=== PATIENT | female | born 1985 | race Caucasian/White ===

== ENCOUNTER 2017-01-28 12:48 | Emergency (ER) | payer MEDICAID ==
[2017-01-28 12:48] VITALS: BMI 39.1
--- NOTE | 2017-01-28 20:14 | RAD ---
PROCEDURE: Right Foot Radiographs. HISTORY: Pain COMPARISON: None. FINDINGS: BONES: Bone alignment and mineralization are normal. No fracture. JOINTS: Normal. SOFT TISSUES: Normal. OTHER FINDINGS: None. IMPRESSION: No acute fracture or dislocation.
--- NOTE | 2017-01-28 20:14 | RAD ---
PROCEDURE: Right Ankle Radiographs. HISTORY: Pain COMPARISON: None FINDINGS: BONES: Bone alignment and mineralization are normal. No acute fracture. JOINTS: Normal. No osteoarthritis. Ankle mortise maintained. Talar dome intact SOFT TISSUES: Normal. OTHER FINDINGS: None. IMPRESSION: No acute fracture or dislocation.
== END 2017-01-28 15:10 | disposition home or self-care (01) ==
LOC: C.ER 12:48
DX: S93.401A Sprain of unspecified ligament of right ankle, initial encounter (principal); S80.02XA Contusion of left knee, initial encounter; W10.9XXA Fall (on) (from) unspecified stairs and steps, initial encounter; Y92.9 Unspecified place or not applicable

== ENCOUNTER 2018-05-19 10:57 | Emergency (ER) | payer MEDICAID ==
[2018-05-19 10:57] VITALS: BMI 39.1
[2018-05-19 12:03] LABS: BASO # 0.3 K/uL (0.0-0.2); BASO % 5.6 % (0.0-2.0); EOS # 0.2 K/uL (0.0-0.7); EOS % 3.9 % (0.0-4.0); HEMOGLOBIN 12.8 g/dL (11.0-16.0); LYMPH # 1.1 K/uL (1.0-4.3); LYMPH % 25.1 % (20.0-40.0); MEAN CELL VOLUME 82.9 fL (81.0-99.0); MEAN CORPUSCULAR HEMOGLOBIN 27.1 pg (27.0-31.0); MEAN CORPUSCULAR HGB CONC 32.7 g/dL (33.0-37.0); MONO # 0.4 K/uL (0.0-0.8); MONO % 8.3 % (0.0-10.0); NEUT # 2.6 K/uL (1.8-7.0); NEUT % 57.1 % (50.0-75.0); NRBC % 0.1 % (0.0-2.0); PLATELET COUNT 337 K/uL (130-400); RBC 4.72 Mil/uL (3.80-5.20); RED CELL DISTRIBUTION WIDTH 13.2 % (11.5-14.5); WHITE BLOOD COUNT 4.5 K/uL (4.8-10.8)
--- NOTE | 2018-05-19 12:16 | C.PDOC ---
History Of Present Illness 32 year old female, with Hx of gallstones as per Pt on sonogram, presents to the ED complaining of abdominal pain for five days that has been worsening over the past two days. She reports a subjective fever with occasional nausea as well as decreased PO intake. The patient denies any vomiting or diarrhea. She admits she did not take any medication for the pain travel pta. Time Seen by Provider: 05/19/18 11:24 Chief Complaint (Nursing): Abdominal Pain History Per: Patient History/Exam Limitations: no limitations Onset/Duration Of Symptoms: Days Current Symptoms Are (Timing): Still Present Location Of Pain/Discomfort: RUQ, Suprapubic Quality Of Discomfort: "Pain" Associated Symptoms: Nausea, Loss Of Appetite. denies: Vomiting, Diarrhea Alleviating Factors: denies: OTC Meds Recent travel outside of the [place]: No Past Medical History Reviewed: Historical Data, Nursing Documentation, Vital Signs Vital Signs: Last Vital Signs Temp 98.3 F 05/19/18 11:01 Pulse 88 05/19/18 11:01 Resp 19 05/19/18 11:01 BP 123/81 05/19/18 11:01 Pulse Ox 100 05/19/18 11:01 - Medical History PMH: Hypothyroidism Surgical History: - [facility] Procedures EXTRACTION OF POC, LOW CERVICAL, OPEN APPROACH (04/08/16) MONITORING OF POC, CARDIAC RATE, FOREST FIRE CONTROL OFFICER APPROACH (04/08/16) Family History: States: Unknown Family Hx - Social History Hx Tobacco Use: No Hx Alcohol Use: No Hx Substance Use: No - Immunization History Hx Tetanus Toxoid Vaccination: Yes Hx Influenza Vaccination: Yes Hx Pneumococcal Vaccination: No Review Of Systems Constitutional: Positive for: Other (loss of appetite). Negative for: Fever Cardiovascular: Negative for: Chest Pain Respiratory: Negative for: Cough, Shortness of Breath Gastrointestinal: Positive for: Nausea, Abdominal Pain. Negative for: Vomiting, Diarrhea Genitourinary: Negative for: Dysuria, Vaginal Discharge, Vaginal Bleeding Neurological: Negative for: Weakness, Numbness Physical Exam - Physical Exam Appears: Non-toxic, No Acute Distress Skin: Warm, Dry Head: Atraumatic, Normacephalic Eye(s): bilateral: PERRL, EOMI Neck: Supple Chest: No Deformity, No Tenderness Cardiovascular: Rhythm Regular (and rate ), No Murmur Respiratory: No Rales, No Rhonchi, No Wheezing, Other (CTA b/l) Gastrointestinal/Abdominal: Soft, Tenderness (to epigastric region and RUQ ), No Distention, No Rebound, Other (+velasquez's sign ) Back: No CVA Tenderness Extremity: No Calf Tenderness, No Swelling Neurological/Psych: Oriented x3, Normal Speech ED Course And Treatment - Laboratory Results Result Diagrams: 05/19/18 12:05 05/19/18 12:21 O2 Sat by Pulse Oximetry: 100 (RA) Pulse Ox Interpretation: Normal Medical Decision Making Medical Decision Making: Impression: 32 year old female, with Hx of gallstones as per Pt on sonogram, presents to the ED complaining of abdominal pain for five days that has been worsening over the past two days Plan: -CT abdomen -CMP -Lipase -CBC -Urine culture -UA 1402 pt with markedly dec pain s/p toradol, labs wnl, await ct scan, likely biliary colic 1603 pt with intussecption on ct, surg resident called, will come see pt. 1801 pt seen by surgery, discussed with Dr Shelby. minimal concern for intussusception. pt may be discharged, return to ed for worsening pain or f/u with Dr Shelby. advised low fat diet and ibuprofen for pain. pt understands plan. abdomen soft, nd, nt on exam/. Disposition Counseled Patient/Family Regarding: Studies Performed, Diagnosis, Need For Followup, Rx Given - Disposition Referrals: Pippa Shelby MD [Staff Provider] - Disposition: HOME/ ROUTINE Disposition Time: 18:06 Condition: IMPROVED Additional Instructions: Eat low fat foods, nothing fried or greasy. Nebo diet is best. Take ibuprofen for pain. FOllow up with Dr Shelby, return to ER for any wprse pain, fever. vomiting or other concerns. Prescriptions: Ibuprofen [Motrin] 600 mg PO TID #30 tab Instructions: Low Cholesterol, Saturated Fat, and Trans Fat Diet , Gallstones (DC) Forms: [facility] (I[place]ic), General Discharge Instructions - Clinical Impression Clinical Impression: Biliary colic - PA / 1ST GRADE TEACHER / Resident Statement MD/DO has reviewed & agrees with the documentation as recorded. - Scribe Statement The provider has reviewed the documentation as recorded by the Scribe (Calista Edward) All medical record entries made by the Scribe were at my direction and personally dictated by me. I have reviewed the chart and agree that the record accurately reflects my personal performance of the history, physical exam, medical decision making, and the department course for this patient. I have also personally directed, reviewed, and agree with the discharge instructions and disposition.
[2018-05-19 12:21] LABS: ANISOCYTOSIS SLIGHT; LYMPHOCYTE 37 % (20-40); MONOCYTE 7 % (0-10); NEUTROPHIL 56 % (50-75); PLATELET ESTIMATE NORMAL (NORMAL); TOTAL CELLS COUNTED 100
[2018-05-19 12:22] LABS: SQUAMOUS EPITHIAL 1 /hpf (0-5); URINE BACTERIA RARE (<OCC)
[2018-05-19 12:22] LABS: LARGE PLATELETS PRESENT; TOXIC GRANULATION PRESENT
[2018-05-19 12:25] LABS: URINE BILIRUBIN NEGATIVE (NEGATIVE); URINE CLARITY Clear (Clear); URINE COLOR Straw (YELLOW); URINE GLUCOSE (UA) NORMAL (Normal); URINE LEUKOCYTE ESTERASE NEG Leu/uL (Negative); URINE PROTEIN NEGATIVE (NEGATIVE); URINE UROBILINOGEN NORMAL mg/dL (0.2-1.0)
[2018-05-19 12:34] LABS: ALB/GLOB RATIO 1.3 (1.0-2.1); ALBUMIN 3.9 g/dL (3.5-5.0); ALT/SGPT 29 U/L (9-52); AST/SGOT 30 U/L (14-36); BLOOD UREA NITROGEN 13 mg/dL (7-17); CALCIUM 9.3 mg/dl (8.6-10.4); GFR NON-AFRICAN AMERICAN > 60; LIPASE 70 U/L (23-300)
[2018-05-19 12:35] LABS: URINE BLOOD 1+ (NEGATIVE)
[2018-05-19] MEDS ORDERED: Iohexol 240 (50 ml) ONE (13:48)
[2018-05-19 14:05] VITALS: O2SAT 100
[2018-05-19] MEDS ORDERED: Iodixanol 320 mg/ml 150 ml Bottle IV ONE (15:01)
--- NOTE | 2018-05-19 15:30 | CT ---
Date of service: 05/19/2018 PROCEDURE: CT Abdomen and Pelvis with contrast HISTORY: Right upper quadrant abdominal pain COMPARISON: None. TECHNIQUE: Multiple contiguous axial images were performed through the abdomen and pelvis with the use of intravenous contrast. Radiation dose: Total exam DLP = 1085.53 mGy-cm. This CT exam was performed using one or more of the following dose reduction techniques: Automated exposure control, adjustment of the mA and/or kV according to patient size, and/or use of iterative reconstruction technique. FINDINGS: LOWER THORAX: Unremarkable. LIVER: Unremarkable. No gross lesion or ductal dilatation. GALLBLADDER AND BILE DUCTS: Cholelithiasis with multiple prominent calculi in the gallbladder for example measuring up to 1 centimeter. PANCREAS: Unremarkable. No gross lesion or ductal dilatation. SPLEEN: Prominent spleen. ADRENALS: Unremarkable. No mass. KIDNEYS AND URETERS: Punctate hypodensity in the left kidney in the midpole measuring 5 millimeters, too small to adequately characterize. VASCULATURE: Unremarkable. No aortic aneurysm. BOWEL: Prominent intussusception of a mid small bowel loop as demonstrated on coronal series 601, images 30-47 as well as axial images series 3 images 52 through 78. There is associated underdistention and thickening of the more proximal small bowel loops. Clinical correlation. Moderate fecal retention in the colon. APPENDIX: Normal appendix. PERITONEUM: Unremarkable. No free fluid. No free air. LYMPH NODES: Few shotty para-aortic and inguinal lymph nodes. Few shotty mesenteric lymph nodes. BLADDER: Unremarkable. REPRODUCTIVE: Heterogeneous uterus and bilateral adnexa. BONES: Osteitis pubis. OTHER FINDINGS: None. IMPRESSION: Small bowel intussusception in the mid abdominal small bowel with underdistention and thickening of the bowel loops proximal to the intussusception. Cholelithiasis with multiple prominent calculi in the gallbladder for example measuring up to 1 centimeter. Correlation with right upper quadrant abdominal ultrasound may be helpful if clinically indicated.
--- NOTE | 2018-05-19 15:54 | CP.PCM.CON ---
History of Present Illness - History of Present Illness History of Present Illness: General Surgery Consult Note for Dr. Shelby Reason for Consult: RUQ abdominal pain 32 F with PMH of cholelithiasis presents to [facility], [place] for complaint of RUQ abdominal pain. Patient seen and evaluated in the ED. Patient states that pain has been present for 2 days. She states that pain awoke her from sleep. She reports to having experienced this a couple times in the past. Patient states that she was previous diagnosed with gallstones. She rates pain as moderate to severe. She describes pain as constant and sharp located in RUQ radiating to right flank. She admits to associated nausea. Eating/drinking exacerbates pain but nothing alleviates it. Denies fever/chills, chest pain, SOB, palpitation, vomiting diarrhea, constipation, urinary symptoms. 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 Review of Systems - Review of Systems All systems: reviewed and no additional remarkable complaints except (as per HPI) Past Patient History - Infectious Disease Hx of Infectious Diseases: None - Past Social History Smoking Status: Never Smoked - ENDOCRINE/METABOLIC Hx Hypothyroidism: Yes - PSYCHIATRIC Hx Substance Use: No - SURGICAL HISTORY Hx Section: Yes (x2) Meds Home Medications: Home Medication List Medication Instructions Recorded Confirmed Type Ibuprofen [Motrin] 600 mg PO TID #30 tab 05/19/18 Rx Allergies/Adverse Reactions: Allergies Allergy/AdvReac Type Severity Reaction Status Date / Time No Known Allergies Allergy Verified 05/19/18 11:04 Physical Exam - Constitutional Appears: No Acute Distress - Head Exam Head Exam: ATRAUMATIC, NORMOCEPHALIC - Eye Exam Eye Exam: EOMI, Normal appearance Pupil Exam: PERRL - ENT Exam ENT Exam: Mucous Membranes Moist - Respiratory Exam Respiratory Exam: NORMAL BREATHING PATTERN - Cardiovascular Exam Cardiovascular Exam: REGULAR RHYTHM - GI/Abdominal Exam GI & Abdominal Exam: Normal Bowel Sounds, Soft, Tenderness (RUQ). absent: Distended, Firm, Guarding, Hernia, Rebound, Rigid - Extremities Exam Extremities exam: Positive for: normal capillary refill, pedal pulses present - Back Exam Back exam: absent: CVA tenderness (L), CVA tenderness (R) - Neurological Exam Neurological exam: Alert, Oriented x3 - Psychiatric Exam Psychiatric exam: Normal Affect, Normal Mood - Skin Skin Exam: Dry, Intact, Normal Color, Warm Results - Vital Signs Recent Vital Signs: Last Vital Signs Temp 98.5 F 05/19/18 15:15 Pulse 84 05/19/18 15:15 Resp 16 05/19/18 13:43 BP 110/76 05/19/18 15:15 Pulse Ox 100 05/19/18 15:15 - Labs Result Diagrams: 05/19/18 12:05 05/19/18 12:21 Labs: Laboratory Results - last 24 hr 05/19/18 05/19/18 05/19/18 11:49 12:05 12:21 WBC 4.5 L RBC 4.72 Hgb 12.8 Hct 39.2 MCV 82.9 MCH 27.1 MCHC 32.7 L RDW 13.2 Plt Count 337 MPV 9.0 Neut % (Auto) 57.1 Lymph % (Auto) 25.1 Patrick % (Auto) 8.3 Eos % (Auto) 3.9 Baso % (Auto) 5.6 H Neut # (Auto) 2.6 Lymph # (Auto) 1.1 Patrick # (Auto) 0.4 Eos # (Auto) 0.2 Baso # (Auto) 0.3 H Neutrophils % (Manual) 56 Lymphocytes % (Manual) 37 Monocytes % (Manual) 7 Toxic Granulation Present Platelet Estimate Normal Large Platelets Present Anisocytosis (manual) Slight Sodium 138 Potassium 4.0 Chloride 103 Carbon Dioxide 23 Anion Gap 16 BUN 13 Creatinine 0.4 L Est GFR ( Amer) > 60 Est GFR (Non-Af Amer) > 60 Random Glucose 90 Calcium 9.3 Total Bilirubin 0.5 AST 30 ALT 29 Alkaline Phosphatase 75 Total Protein 6.9 Albumin 3.9 Globulin 3.0 Albumin/Globulin Ratio 1.3 Lipase 70 Urine Color Straw Urine Clarity Clear Urine pH 7.0 Ur Specific [place] 1.010 Urine Protein Negative Urine Glucose (UA) Normal Urine Ketones Negative Urine Blood 1+ H Urine Nitrate Negative Urine Bilirubin Negative Urine Urobilinogen Normal Ur Leukocyte Esterase Neg Urine WBC (Auto) < 1 Urine RBC (Auto) < 1 Ur Squamous Epith Cells 1 Urine Bacteria Rare Assessment & Plan - Assessment and Plan (Free Text) Assessment: 32 F with biliary colic Plan: -Patient may follow up as outpatient for elective surgery -Return to ED if symptoms persist or condition worsens -Low-fat diet -Discussed with Dr. Heron Mcgrath PGY2 - Date & Time Date: 05/19/18 Time: 16:00
[2018-05-19 17:57] VITALS: RESP 17; TEMP 97.9
[2018-05-19 18:52] VITALS: BP 105/70; PULSE 80
== END 2018-05-19 18:51 | disposition home or self-care (01) ==
LOC: C.ER 10:57
DX: K80.50 Calculus of bile duct without cholangitis or cholecystitis without obstruction (principal)
CPT/HCPCS: 74177; 80053; 81001; 83690; 85025; 87086; 96374; 96375; 99285; J1885; J2270; Q9967

== ENCOUNTER 2018-05-25 07:42 | Inpatient (IN) | payer MEDICAID ==
[2018-05-25 07:58] VITALS: BMI 33.4
--- NOTE | 2018-05-25 08:32 | C.PDOC ---
History Of Present Illness 32 y/o female with history of Hypothyroidism presents to ED with c/o abdominal pain 6/10 associated with nausea and abdomen bloating for 1 week. Patient was seen at ED on 05/19/18 for same symptoms, had CT scan that showed gallstones. Patient was instructed to follow up with surgery outpatient but failed and reports increased pain prompting visit to ED today. Patient denies fever, chills, diarrhea, vomiting or any other complaints at this time. Time Seen by Provider: 05/25/18 08:20 Chief Complaint (Nursing): Abdominal Pain History Per: Patient History/Exam Limitations: no limitations Onset/Duration Of Symptoms: Days Current Symptoms Are (Timing): Still Present Past Medical History Reviewed: Historical Data, Nursing Documentation, Vital Signs Vital Signs: Last Vital Signs Temp 97.5 F L 05/25/18 07:58 Pulse 95 H 05/25/18 07:58 Resp 18 05/25/18 07:58 BP 118/83 05/25/18 07:58 Pulse Ox 100 05/25/18 07:58 - Medical History PMH: Hypothyroidism Surgical History: - [facility] Procedures EXTRACTION OF POC, LOW CERVICAL, OPEN APPROACH (04/08/16) MONITORING OF POC, CARDIAC RATE, TEEN COUNSELOR APPROACH (04/08/16) Family History: States: No Known Family Hx - Social History Hx Tobacco Use: No Hx Alcohol Use: No Hx Substance Use: No - Immunization History Hx Tetanus Toxoid Vaccination: Yes Hx Influenza Vaccination: Yes Hx Pneumococcal Vaccination: No Review Of Systems Constitutional: Negative for: Fever, Chills Gastrointestinal: Positive for: Nausea, Abdominal Pain. Negative for: Vomiting, Diarrhea Skin: Negative for: Rash Physical Exam - Physical Exam Appears: Non-toxic, No Acute Distress Skin: Warm, Dry, No Rash Head: Atraumatic, Normacephalic Eye(s): bilateral: Normal Inspection Oral Mucosa: Moist Cardiovascular: Rhythm Regular Respiratory: Normal Breath Sounds, No Rales, No Rhonchi, No Wheezing Gastrointestinal/Abdominal: Soft, Tenderness (diffuse on palpation ), No Guarding, No Rebound Back: No CVA Tenderness Neurological/Psych: Oriented x3, Normal Speech, Normal Cognition ED Course And Treatment O2 Sat by Pulse Oximetry: 100 (RA) Pulse Ox Interpretation: Normal Medical Decision Making Medical Decision Making: Plan: Blood work, US Progress: D/W global supply chain vice president, evaluated patient at bedside D/W Dr. Cook accepts patient admission under his service for Cholecystitis Disposition Discussed With DrPaty: Foreign Cook Counseled Patient/Family Regarding: Studies Performed, Diagnosis - Disposition Disposition: HOSPITALIZED Disposition Time: 09:36 Condition: GUARDED Forms: [facility] (Citizen Of [place]) - Clinical Impression Clinical Impression: Cholecystitis - Scribe Statement The provider has reviewed the documentation as recorded by the Evaristoibhernan Carmona All medical record entries made by the Evaristoibhernan were at my direction and personally dictated by me. I have reviewed the chart and agree that the record accurately reflects my personal performance of the history, physical exam, medical decision making, and the department course for this patient. I have also personally directed, reviewed, and agree with the discharge instructions and disposition. Decision To Admit - Pt Status Changed To: Hospital Disposition Of: Inpatient - Admit Certification Admit to Inpatient:: After my assessment, the patient will require hospitalization for at least two midnights. This is because of the severity of symptoms shown, intensity of services needed, and/or the medical risk in this patient being treated as an outpatient. - InPatient: Physician Admission Certification:: needs surgery - . Bed Request Type: Regular Patient Diagnosis: Cholecystitis
[2018-05-25] MEDS ORDERED: Sodium Chloride 0.9% 1,000 ML IV SCH (10:00)
[2018-05-25 10:06] LABS: BASO % 0.8 % (0.0-2.0); EOS # 0.2 K/uL (0.0-0.7); EOS % 3.5 % (0.0-4.0); HEMOGLOBIN 12.9 g/dL (11.0-16.0); LYMPH # 1.4 K/uL (1.0-4.3); MEAN CELL VOLUME 82.5 fL (81.0-99.0); MEAN CORPUSCULAR HEMOGLOBIN 27.7 pg (27.0-31.0); MEAN CORPUSCULAR HGB CONC 33.6 g/dL (33.0-37.0); MEAN PLATELET VOLUME 9.6 fL (7.2-11.7); MONO # 0.4 K/uL (0.0-0.8); NEUT # 2.7 K/uL (1.8-7.0); NEUT % 57.7 % (50.0-75.0); NRBC % 0.1 % (0.0-2.0); RBC 4.65 Mil/uL (3.80-5.20); RED CELL DISTRIBUTION WIDTH 13.3 % (11.5-14.5); WHITE BLOOD COUNT 4.7 K/uL (4.8-10.8)
[2018-05-25] MEDS ORDERED: cefTRIAXone IV 1 gm in Dextros 50 ML IVPB STA (10:08)
--- NOTE | 2018-05-25 10:08 | CP.PCM.HP ---
<Keila Corey - Last Filed: 05/25/18 10:43> History of Present Illness - History of Present Illness History of Present Illness: 32 year old female who presents to ED today for cholecystectomy after being evaluated in ED on 05/19/18 for cholelithiasis. Patient misunderstood the instructions to follow up outpatient for elective cholecystectomy and presented this morning requesting surgery. Patient reports she has not taken any ibuprofen prescribed upon discharge from ED from last visit as she does not like to take medications. Patient reports early satiety, post prandial nausea and RUQ abdominal pain, loose stools. Denies fevers, chest pain, SOB, vomiting, hematochezia. PMHx: Cholelithiasis, Hypothyroidism PSHx: 3 c-sections Meds: synthroid 200mcg All: NKDA FamHx: breast/ovarian ca SocHx: denies Present on Admission - Present on Admission Any Indicators Present on Admission: No Review of Systems - Constitutional Constitutional: Anorexia. absent: Headache - EENT Nose/Mouth/Throat: absent: Epistaxis, Dysphagia - Cardiovascular Cardiovascular: absent: Chest Pain, Palpitations - Respiratory Respiratory: absent: Cough, Dyspnea - Gastrointestinal Gastrointestinal: Abdominal Pain (RUQ), Early Satiety, Loose Stools (watery), Nausea. absent: Hematochezia, Vomiting - Genitourinary Genitourinary: absent: Dysuria, Flank Pain Past Patient History - Infectious Disease Hx of Infectious Diseases: None - Past Social History Smoking Status: Never Smoked - ENDOCRINE/METABOLIC Hx Hypothyroidism: Yes - PSYCHIATRIC Hx Substance Use: No - SURGICAL HISTORY Hx Surgeries: Yes Hx Section: Yes (x3) - ANESTHESIA Hx Anesthesia: Yes Hx Anesthesia Reactions: No Meds Allergies/Adverse Reactions: Allergies Allergy/AdvReac Type Severity Reaction Status Date / Time No Known Allergies Allergy Verified 05/25/18 07:58 Physical Exam - Constitutional Appears: Non-toxic, No Acute Distress - Head Exam Head Exam: ATRAUMATIC, NORMAL INSPECTION, NORMOCEPHALIC - Eye Exam Eye Exam: EOMI, Normal appearance - ENT Exam ENT Exam: Mucous Membranes Moist, Normal Exam - Neck Exam Neck exam: Positive for: Normal Inspection - Respiratory Exam Respiratory Exam: Clear to Auscultation Bilateral, NORMAL BREATHING PATTERN - Cardiovascular Exam Cardiovascular Exam: Tachycardia, REGULAR RHYTHM, +S1, +S2 - GI/Abdominal Exam GI & Abdominal Exam: Normal Bowel Sounds, Soft, Tenderness (RUQ tenderness). absent: Distended - Extremities Exam Extremities exam: Positive for: normal inspection. Negative for: calf tenderness, pedal edema - Neurological Exam Neurological exam: Alert, Oriented x3 - Psychiatric Exam Psychiatric exam: Normal Affect, Normal Mood - Skin Skin Exam: Dry, Intact, Normal Color, Warm Results - Vital Signs Recent Vital Signs: Last Vital Signs Temp 97.5 F L 05/25/18 07:58 Pulse 95 H 05/25/18 07:58 Resp 18 05/25/18 07:58 BP 118/83 05/25/18 07:58 Pulse Ox 100 05/25/18 09:41 - Labs Result Diagrams: 05/25/18 10:03 Assessment & Plan - Assessment and Plan (Free Text) Assessment: 32 year old female admitted with choledocolithiasis. Plan: -to OR today for cholecystectomy with Dr. Cook -NS @125 -rocephin -NPO -pain management prn -f/u abdominal US Discussed with Dr. Joey Corey, PGY-1 <Foreign Cook B - Last Filed: 06/03/18 17:04> Results - Vital Signs Recent Vital Signs: Last Vital Signs Temp 98.0 F 05/27/18 07:57 Pulse 96 H 05/27/18 07:57 Resp 20 05/27/18 07:57 BP 112/62 05/27/18 07:57 Pulse Ox 97 05/27/18 07:57 - Labs Result Diagrams: 05/27/18 08:36 05/27/18 08:36 Attending/Attestation - Attestation I have personally seen and examined this patient.: Yes I have fully participated in the care of the patient.: Yes I have reviewed all pertinent clinical information: Yes Notes (Text): Pt was seen and examined at bedside Agree with above note and assessment Pt with RUQ abdominal pain and nausea Abdomen: Soft, tender in upper abdomen,ND Labs and radiology reviewed Ass: Cholelithiasis,Cholecystitis Plan: NPO, IVF, IV antibiotics OR for Lap Cholecystectomy possible Open Consent C.w current mx Plan d.w pt in detail. Risk and Benefit explained in detail
[2018-05-25 10:12] LABS: SQUAMOUS EPITHIAL 2 /hpf (0-5); URINE BACTERIA OCC (<OCC); URINE BILIRUBIN NEGATIVE (NEGATIVE); URINE BLOOD 2+ (NEGATIVE); URINE CLARITY Clear (Clear); URINE COLOR Yellow (YELLOW); URINE GLUCOSE (UA) NORMAL (Normal); URINE LEUKOCYTE ESTERASE NEG Leu/uL (Negative); URINE PROTEIN 1+ mg/dL (NEGATIVE); URINE UROBILINOGEN NORMAL mg/dL (0.2-1.0)
[2018-05-25 10:31] LABS: INR 1.1; PROTHROMBIN TIME 11.7 SECONDS (9.7-12.2)
--- NOTE | 2018-05-25 10:44 | US ---
Date of service: 05/25/2018 HISTORY: abd pain COMPARISON: CT abdomen pelvis with contrast performed 05/19/18 TECHNIQUE: Sonographic evaluation of the right upper quadrant of the abdomen. FINDINGS: LIVER: Measures 17.3 cm in length and appears within normal limits of size, shape, and echotexture. No focal hepatic mass identified. The main portal vein appears patent with normal directional flow. No intrahepatic bile duct dilatation. GALLBLADDER: Gallstones. No gallbladder wall thickening or pericholecystic edema. Negative sonographic Rodriges's sign as assessed by the train braker. COMMON BILE DUCT: Measures 3 mm. PANCREAS: Not well-visualized. RIGHT KIDNEY: Measures 19.3 x 4.3 x 5.9 cm. No obstructing calculus or hydronephrosis identified. AORTA: Limited visualization appears grossly unremarkable. IVC: Limited visualization appears grossly unremarkable. OTHER FINDINGS: None . IMPRESSION: Cholelithiasis.
[2018-05-25 10:56] LABS: ALB/GLOB RATIO 1.3 (1.0-2.1); ALBUMIN 4.2 g/dL (3.5-5.0); ALT/SGPT 29 U/L (9-52); AST/SGOT 21 U/L (14-36); BLOOD UREA NITROGEN 16 mg/dL (7-17); CALCIUM 9.4 mg/dl (8.6-10.4); GFR NON-AFRICAN AMERICAN > 60; LIPASE 101 U/L (23-300)
--- NOTE | 2018-05-25 11:03 | RAD ---
HISTORY: pre-op COMPARISON: No prior. TECHNIQUE: Chest, one view. FINDINGS: LUNGS: No focal consolidation. Please note that chest x-ray has limited sensitivity for the detection of pulmonary masses. PLEURA: No significant pleural effusion identified. No definite pneumothorax . CARDIOVASCULAR: The cardiomediastinal silhouette appears within normal limits of size. No significant atherosclerotic calcification present. OSSEOUS STRUCTURES: No acute osseous abnormality identified. VISUALIZED UPPER ABDOMEN: Unremarkable. OTHER FINDINGS: None. IMPRESSION: No focal consolidation, significant pleural effusion, or definite pneumothorax identified.
[2018-05-25] MEDS ORDERED: Bupivacaine 0.25% 20 ML INJ IJ ONE (12:51)
[2018-05-25] MEDS ORDERED: Lidocaine/Epinephrine 1% 1:100000 10 ML IJ ONE (12:51)
[2018-05-25] MEDS ORDERED: ceFAZolin IV 1 gm in Dextrose 2 GM/100 ML BAG IVPB ONE (12:51)
[2018-05-25] MEDS ORDERED: Propofol 10 mg/ml Inj (20 ML) ONE (12:52)
[2018-05-25] MEDS ORDERED: Midazolam 2 MG/2 ML VIAL ONE (12:52)
[2018-05-25] MEDS ORDERED: Rocuronium 10 mg/ml (5 ml) ONE (12:53)
[2018-05-25] MEDS: HYDROmorphone 0.5 mg/0.5 ml ISec IVP PRN ×2 (15:36→16:01)
--- NOTE | 2018-05-25 16:10 | PCM.SURG1 ---
Surgeon's Initial Post Op Note - Surgeon's Notes Surgeon: Dr Cook Polymerization Oven Operator: Dr Martinez PGY4 Type of Anesthesia: General Endo Pre-Operative Diagnosis: acute cholecystitis Operative Findings: distended gallbladder. no evidence of intussusception Post-Operative Diagnosis: as above Operation Performed: laparoscopic exploration of abdomen. robotic cholecystectomy Specimen/Specimens Removed: gallbladder Estimated Blood Loss: EBL {In ML}: 10 Blood Products Given: N/A Drains Used: No Drains Post-Op Condition: Good Date of Surgery/Procedure: 05/25/18 Time of Surgery/Procedure: 16:10
[2018-05-25] MEDS ORDERED: Oxycodone/Acetaminophen 5/325 mg Tab PO PRN (16:12)
[2018-05-25] MEDS: Sodium Chloride 0.9% 1,000 ML IV SCH (17:11)
[2018-05-25 17:22] VITALS: RESP 20
[2018-05-26] MEDS: Sodium Chloride 0.9% 1,000 ML IV SCH ×3 (04:30→19:36)
[2018-05-26 07:23] LABS: BASO % 0.4 % (0.0-2.0); EOS % 0.2 % (0.0-4.0); HEMOGLOBIN 11.7 g/dL (11.0-16.0); LYMPH # 1.4 K/uL (1.0-4.3); LYMPH % 19.2 % (20.0-40.0); MEAN CELL VOLUME 81.3 fL (81.0-99.0); MEAN CORPUSCULAR HEMOGLOBIN 28.2 pg (27.0-31.0); MEAN CORPUSCULAR HGB CONC 34.7 g/dL (33.0-37.0); MEAN PLATELET VOLUME 9.3 fL (7.2-11.7); MONO # 0.5 K/uL (0.0-0.8); MONO % 6.5 % (0.0-10.0); NEUT # 5.3 K/uL (1.8-7.0); NEUT % 73.7 % (50.0-75.0); RBC 4.16 Mil/uL (3.80-5.20); RED CELL DISTRIBUTION WIDTH 13.3 % (11.5-14.5); WHITE BLOOD COUNT 7.2 K/uL (4.8-10.8)
--- NOTE | 2018-05-26 07:39 | CP.PCM.DIS ---
Provider - Provider Date of Admission: 05/25/18 09:37 Attending physician: Foreign Cook MD Hospital Course - Lab Results Lab Results: Most Recent Lab Values WBC 7.2 K/uL (4.8-10.8) D 05/26/18 07:15 RBC 4.16 Mil/uL (3.80-5.20) 05/26/18 07:15 Hgb 11.7 g/dL (11.0-16.0) 05/26/18 07:15 Hct 33.8 % (34.0-47.0) L 05/26/18 07:15 MCV 81.3 fL (81.0-99.0) 05/26/18 07:15 MCH 28.2 pg (27.0-31.0) 05/26/18 07:15 MCHC 34.7 g/dL (33.0-37.0) 05/26/18 07:15 RDW 13.3 % (11.5-14.5) 05/26/18 07:15 Plt Count 325 K/uL (130-400) 05/26/18 07:15 MPV 9.3 fL (7.2-11.7) 05/26/18 07:15 Neut % (Auto) 73.7 % (50.0-75.0) 05/26/18 07:15 Lymph % (Auto) 19.2 % (20.0-40.0) L 05/26/18 07:15 [place] % (Auto) 6.5 % (0.0-10.0) 05/26/18 07:15 Eos % (Auto) 0.2 % (0.0-4.0) 05/26/18 07:15 Baso % (Auto) 0.4 % (0.0-2.0) 05/26/18 07:15 Neut # (Auto) 5.3 K/uL (1.8-7.0) 05/26/18 07:15 Lymph # (Auto) 1.4 K/uL (1.0-4.3) 05/26/18 07:15 [place] # (Auto) 0.5 K/uL (0.0-0.8) 05/26/18 07:15 Eos # (Auto) 0.0 K/uL (0.0-0.7) 05/26/18 07:15 Baso # (Auto) 0.0 K/uL (0.0-0.2) 05/26/18 07:15 PT 11.7 SECONDS (9.7-12.2) 05/25/18 10:03 INR 1.1 05/25/18 10:03 APTT 38 SECONDS (21-34) H 05/25/18 10:03 Sodium 141 mmol/L (132-148) 05/25/18 10:03 Potassium 3.9 mmol/L (3.6-5.2) 05/25/18 10:03 Chloride 104 mmol/L (98-107) 05/25/18 10:03 Carbon Dioxide 24 mmol/L (22-30) 05/25/18 10:03 Anion Gap 16 (10-20) 05/25/18 10:03 BUN 16 mg/dL (7-17) 05/25/18 10:03 Creatinine 0.4 mg/dL (0.7-1.2) L 05/25/18 10:03 Est GFR ( Amer) > 60 05/25/18 10:03 Est GFR (Non-Af Amer) > 60 05/25/18 10:03 Random Glucose 87 mg/dL (65-105) 05/25/18 10:03 Calcium 9.4 mg/dl (8.6-10.4) 05/25/18 10:03 Total Bilirubin 0.4 mg/dL (0.2-1.3) 05/25/18 10:03 AST 21 U/L (14-36) 05/25/18 10:03 ALT 29 U/L (9-52) 05/25/18 10:03 Alkaline Phosphatase 78 U/L (38-126) 05/25/18 10:03 Total Protein 7.5 g/dL (6.3-8.3) 05/25/18 10:03 Albumin 4.2 g/dL (3.5-5.0) 05/25/18 10:03 Globulin 3.3 gm/dL (2.2-3.9) 05/25/18 10:03 Albumin/Globulin Ratio 1.3 (1.0-2.1) 05/25/18 10:03 Lipase 101 U/L (23-300) 05/25/18 10:03 Urine Color Yellow (YELLOW) 05/25/18 10:03 Urine Clarity Clear (Clear) 05/25/18 10:03 Urine pH 5.0 (5.0-8.0) 05/25/18 10:03 Ur Specific [place] 1.021 (1.003-1.030) 05/25/18 10:03 Urine Protein 1+ mg/dL (NEGATIVE) H 05/25/18 10:03 Urine Glucose (UA) Normal mg/dL (Normal) 05/25/18 10:03 Urine Ketones Negative mg/dL (NEGATIVE) 05/25/18 10:03 Urine Blood 2+ (NEGATIVE) H 05/25/18 10:03 Urine Nitrate Negative (NEGATIVE) 05/25/18 10:03 Urine Bilirubin Negative (NEGATIVE) 05/25/18 10:03 Urine Urobilinogen Normal mg/dL (0.2-1.0) 05/25/18 10:03 Ur Leukocyte Esterase Neg Dian/uL (Negative) 05/25/18 10:03 Urine WBC (Auto) 2 /hpf (0-5) 05/25/18 10:03 Urine RBC (Auto) 4 /hpf (0-3) H 05/25/18 10:03 Ur Squamous Epith Cells 2 /hpf (0-5) 05/25/18 10:03 Urine Bacteria Occ (<OCC) H 05/25/18 10:03 Discharge Exam - Head Exam Head Exam: ATRAUMATIC, NORMAL INSPECTION, NORMOCEPHALIC Discharge Plan - Follow Up Plan Condition: GUARDED Disposition: HOME/ ROUTINE
[2018-05-26 07:40] LABS: ALB/GLOB RATIO 1.1 (1.0-2.1); ALBUMIN 3.2 g/dL (3.5-5.0); ALT/SGPT 45 U/L (9-52); AST/SGOT 40 U/L (14-36); BLOOD UREA NITROGEN 8 mg/dL (7-17); CALCIUM 8.3 mg/dl (8.6-10.4); GFR NON-AFRICAN AMERICAN > 60
--- NOTE | 2018-05-26 12:50 | CP.PCM.PN ---
<Jon Mcgrath - Last Filed: 05/26/18 22:31> Subjective - Date & Time of Evaluation Date of Evaluation: 05/26/18 Time of Evaluation: 12:30 - Subjective Subjective: General Surgery Note for Dr. Cook Patient seen and examined at bedside. No acute event overnight. Patient is s/p robotic cholecystectomy POD#1. Patient is complaining of abd pain. She states that morphine made her nauseous and caused a rash on her hand. She had an episode of vomiting after morphine administration. Patient denies fever/chill an diarrhea. Denies Flatus and BM. Patient is ambulating, tolerating diet and voiding without difficulty. Objective - Vital Signs/Intake and Output Vital Signs (last 24 hours): Temp Pulse Resp BP Pulse Ox 98.7 F 96 H 20 105/70 98 05/26/18 07:38 05/26/18 07:38 05/26/18 07:38 05/26/18 07:38 05/26/18 07:38 Intake and Output: 05/26/18 05/26/18 06:59 18:59 Intake Total 1500 Output Total 500 Balance 1000 - Medications Medications: Current Medications Sodium Chloride (Sodium Chloride 0.9%) 1,000 mls @ 75 mls/hr IV .[id number] JANICE Last Admin: 05/26/18 05:50 Dose: Not Given Morphine Sulfate (Morphine) 2 mg IVP Q4 PRN PRN Reason: Pain, moderate (4-7) Last Admin: 05/26/18 12:17 Dose: 2 mg Ondansetron HCl (Zofran Inj) 4 mg IVP Q4 PRN PRN Reason: Nausea/Vomiting Oxycodone/Acetaminophen (Percocet 5/325 Mg Tab) 1 tab PO Q4H PRN PRN Reason: Pain, Mild (1-3) Stop: 05/28/18 16:13 Pneumococcal Polyvalent Vaccine (Pneumovax 23 Vaccine) 0.5 ml IM .ONCE ONE Stop: 05/28/18 10:01 - Labs Labs: 05/26/18 07:15 05/26/18 07:15 PT 11.7 SECONDS (9.7-12.2) 05/25/18 10:03 INR 1.1 05/25/18 10:03 APTT 38 SECONDS (21-34) H 05/25/18 10:03 - Constitutional Appears: No Acute Distress - Head Exam Head Exam: ATRAUMATIC, NORMOCEPHALIC - Eye Exam Eye Exam: EOMI, Normal appearance Pupil Exam: PERRL - ENT Exam ENT Exam: Mucous Membranes Moist - Respiratory Exam Respiratory Exam: NORMAL BREATHING PATTERN - Cardiovascular Exam Cardiovascular Exam: REGULAR RHYTHM - GI/Abdominal Exam GI & Abdominal Exam: Soft, Tenderness (ruq and surgical sites), Normal Bowel Sounds. absent: Distended, Firm, Guarding, Rigid, Rebound - Extremities Exam Extremities Exam: Normal Capillary Refill. absent: Calf Tenderness - Back Exam Back Exam: absent: CVA tenderness (L), CVA tenderness (R) - Neurological Exam Neurological Exam: Alert, Awake, Normal Gait, Oriented x3 - Psychiatric Exam Psychiatric exam: Normal Affect, Normal Mood - Skin Skin Exam: Dry, Intact, Normal Color, Warm Assessment and Plan - Assessment and Plan (Free Text) Assessment: 32 F s/p robotic cholecystectomy POD#1 Plan: -Regular diet -IV fluids -Analgesics/Anti-emetics PRN -Reglan Q6H -Encourage ambulation/IS/OOB to chair -Further recommendations as per Dr. Joey Mcgrath PGY2 <Foreign Cook B - Last Filed: 06/03/18 17:05> Objective - Vital Signs/Intake and Output Vital Signs (last 24 hours): Temp Pulse Resp BP Pulse Ox 98.0 F 96 H 20 112/62 97 05/27/18 07:57 05/27/18 07:57 05/27/18 07:57 05/27/18 07:57 05/27/18 07:57 - Labs Labs: 05/27/18 08:36 05/27/18 08:36 PT 11.7 SECONDS (9.7-12.2) 05/25/18 10:03 INR 1.1 05/25/18 10:03 APTT 38 SECONDS (21-34) H 05/25/18 10:03 Attending/Attestation - Attestation I have personally seen and examined this patient.: Yes I have fully participated in the care of the patient.: Yes I have reviewed all pertinent clinical information, including history, physical exam and plan: Yes Notes (Text): Pt was seen and examined at bedside Agree with above note and assessment Pt is improving clinically C.w IV antibiotics DC Plan OOB to walk DVT prophylaxis Plan d.w pt in detail.
[2018-05-26 16:42] VITALS: O2SAT 97
[2018-05-26] MEDS ORDERED: Potassium Chloride 20 mEq ER Tab PO ONE (18:00)
--- NOTE | 2018-05-26 21:46 | CP.PCM.CON ---
Past Patient History - Infectious Disease Hx of Infectious Diseases: None - Past Medical History & Family History Past Medical History?: Yes - Past Social History Smoking Status: Never Smoked - ENDOCRINE/METABOLIC Hx Hypothyroidism: Yes - MUSCULOSKELETAL/RHEUMATOLOGICAL Hx Falls: No - PSYCHIATRIC Hx Substance Use: No - SURGICAL HISTORY Hx Surgeries: Yes Hx Section: Yes (x3) - ANESTHESIA Hx Anesthesia: Yes Hx Anesthesia Reactions: No Meds Allergies/Adverse Reactions: Allergies Allergy/AdvReac Type Severity Reaction Status Date / Time No Known Allergies Allergy Verified 05/25/18 07:58 - Medications Medications: Current Medications Docusate Sodium (Colace) 100 mg PO BID [facility] Last Admin: 05/26/18 17:18 Dose: 100 mg Sodium Chloride (Sodium Chloride 0.9%) 1,000 mls @ 75 mls/hr IV .[id number] [facility] Last Admin: 05/26/18 19:36 Dose: Not Given Metoclopramide HCl (Reglan) 10 mg IVP Q6H [facility] Last Admin: 05/26/18 19:28 Dose: 10 mg Ondansetron HCl (Zofran Inj) 4 mg IVP Q4 PRN PRN Reason: Nausea/Vomiting Oxycodone/Acetaminophen (Percocet 5/325 Mg Tab) 1 tab PO Q4H PRN PRN Reason: Pain, Mild (1-3) Stop: 05/28/18 16:13 Pneumococcal Polyvalent Vaccine (Pneumovax 23 Vaccine) 0.5 ml IM .ONCE ONE Stop: 05/28/18 10:01 Polyethylene Glycol (Miralax) 17 gm PO DAILY [facility] Results - Vital Signs Recent Vital Signs: Last Vital Signs Temp 98 F 05/26/18 16:00 Pulse 97 H 05/26/18 16:00 Resp 20 05/26/18 16:00 BP 105/74 05/26/18 16:00 Pulse Ox 97 05/26/18 16:00 - Labs Result Diagrams: 05/26/18 07:15 05/26/18 07:15 Labs: Laboratory Results - last 24 hr 05/26/18 05/26/18 07:15 07:15 WBC 7.2 D RBC 4.16 Hgb 11.7 Hct 33.8 L MCV 81.3 MCH 28.2 MCHC 34.7 RDW 13.3 Plt Count 325 MPV 9.3 Neut % (Auto) 73.7 Lymph % (Auto) 19.2 L [place] % (Auto) 6.5 Eos % (Auto) 0.2 Baso % (Auto) 0.4 Neut # (Auto) 5.3 Lymph # (Auto) 1.4 [place] # (Auto) 0.5 Eos # (Auto) 0.0 Baso # (Auto) 0.0 Sodium 137 Potassium 3.5 L Chloride 105 Carbon Dioxide 21 L Anion Gap 14 BUN 8 Creatinine 0.4 L Est GFR ( Amer) > 60 Est GFR (Non-Af Amer) > 60 Random Glucose 99 Calcium 8.3 L Total Bilirubin 0.4 AST 40 H D ALT 45 Alkaline Phosphatase 72 Total Protein 6.3 Albumin 3.2 L D Globulin 3.0 Albumin/Globulin Ratio 1.1
[2018-05-27] MEDS ORDERED: Levothyroxine 200 MCG TAB PO SCH (06:30)
--- NOTE | 2018-05-27 07:13 | CP.PCM.DIS ---
Provider - Provider Date of Admission: 05/25/18 09:37 Attending physician: Foreign Cook MD Time Spent in preparation of Discharge (in minutes): 15 Hospital Course - Lab Results Lab Results: Most Recent Lab Values WBC 7.2 K/uL (4.8-10.8) D 05/26/18 07:15 RBC 4.16 Mil/uL (3.80-5.20) 05/26/18 07:15 Hgb 11.7 g/dL (11.0-16.0) 05/26/18 07:15 Hct 33.8 % (34.0-47.0) L 05/26/18 07:15 MCV 81.3 fL (81.0-99.0) 05/26/18 07:15 MCH 28.2 pg (27.0-31.0) 05/26/18 07:15 MCHC 34.7 g/dL (33.0-37.0) 05/26/18 07:15 RDW 13.3 % (11.5-14.5) 05/26/18 07:15 Plt Count 325 K/uL (130-400) 05/26/18 07:15 MPV 9.3 fL (7.2-11.7) 05/26/18 07:15 Neut % (Auto) 73.7 % (50.0-75.0) 05/26/18 07:15 Lymph % (Auto) 19.2 % (20.0-40.0) L 05/26/18 07:15 [place] % (Auto) 6.5 % (0.0-10.0) 05/26/18 07:15 Eos % (Auto) 0.2 % (0.0-4.0) 05/26/18 07:15 Baso % (Auto) 0.4 % (0.0-2.0) 05/26/18 07:15 Neut # (Auto) 5.3 K/uL (1.8-7.0) 05/26/18 07:15 Lymph # (Auto) 1.4 K/uL (1.0-4.3) 05/26/18 07:15 [place] # (Auto) 0.5 K/uL (0.0-0.8) 05/26/18 07:15 Eos # (Auto) 0.0 K/uL (0.0-0.7) 05/26/18 07:15 Baso # (Auto) 0.0 K/uL (0.0-0.2) 05/26/18 07:15 PT 11.7 SECONDS (9.7-12.2) 05/25/18 10:03 INR 1.1 05/25/18 10:03 APTT 38 SECONDS (21-34) H 05/25/18 10:03 Sodium 137 mmol/L (132-148) 05/26/18 07:15 Potassium 3.5 mmol/L (3.6-5.2) L 05/26/18 07:15 Chloride 105 mmol/L (98-107) 05/26/18 07:15 Carbon Dioxide 21 mmol/L (22-30) L 05/26/18 07:15 Anion Gap 14 (10-20) 05/26/18 07:15 BUN 8 mg/dL (7-17) 05/26/18 07:15 Creatinine 0.4 mg/dL (0.7-1.2) L 05/26/18 07:15 Est GFR ( Amer) > 60 05/26/18 07:15 Est GFR (Non-Af Amer) > 60 05/26/18 07:15 Random Glucose 99 mg/dL (65-105) 05/26/18 07:15 Calcium 8.3 mg/dl (8.6-10.4) L 05/26/18 07:15 Total Bilirubin 0.4 mg/dL (0.2-1.3) 05/26/18 07:15 AST 40 U/L (14-36) H D 05/26/18 07:15 ALT 45 U/L (9-52) 05/26/18 07:15 Alkaline Phosphatase 72 U/L (38-126) 05/26/18 07:15 Total Protein 6.3 g/dL (6.3-8.3) 05/26/18 07:15 Albumin 3.2 g/dL (3.5-5.0) L D 05/26/18 07:15 Globulin 3.0 gm/dL (2.2-3.9) 05/26/18 07:15 Albumin/Globulin Ratio 1.1 (1.0-2.1) 05/26/18 07:15 Lipase 101 U/L (23-300) 05/25/18 10:03 Urine Color Yellow (YELLOW) 05/25/18 10:03 Urine Clarity Clear (Clear) 05/25/18 10:03 Urine pH 5.0 (5.0-8.0) 05/25/18 10:03 Ur Specific [place] 1.021 (1.003-1.030) 05/25/18 10:03 Urine Protein 1+ mg/dL (NEGATIVE) H 05/25/18 10:03 Urine Glucose (UA) Normal mg/dL (Normal) 05/25/18 10:03 Urine Ketones Negative mg/dL (NEGATIVE) 05/25/18 10:03 Urine Blood 2+ (NEGATIVE) H 05/25/18 10:03 Urine Nitrate Negative (NEGATIVE) 05/25/18 10:03 Urine Bilirubin Negative (NEGATIVE) 05/25/18 10:03 Urine Urobilinogen Normal mg/dL (0.2-1.0) 05/25/18 10:03 Ur Leukocyte Esterase Neg Dian/uL (Negative) 05/25/18 10:03 Urine WBC (Auto) 2 /hpf (0-5) 05/25/18 10:03 Urine RBC (Auto) 4 /hpf (0-3) H 05/25/18 10:03 Ur Squamous Epith Cells 2 /hpf (0-5) 05/25/18 10:03 Urine Bacteria Occ (<OCC) H 05/25/18 10:03 - Hospital Course Hospital Course: 32F presented with multiple admissions for RUQ pain. Found to have cholecystitis, with single CT showing intussuception as well. Taken to OR for lap exploration and cholecystectomy. No evidence of intussusception. Tolerated surgery well. D/C POD#2 tolerating diet, having BM, pain wlel controlled. F/U next week in office Discharge Exam - Head Exam Head Exam: ATRAUMATIC, NORMOCEPHALIC - Eye Exam Eye Exam: Normal appearance - Respiratory Exam Respiratory Exam: NORMAL BREATHING PATTERN - Cardiovascular Exam Cardiovascular Exam: REGULAR RHYTHM - GI/Abdominal Exam GI & Abdominal Exam: Soft, Tenderness (post-op) Discharge Plan - Discharge Medications Prescriptions: Docusate [Colace] 100 mg PO BID #20 cap oxyCODONE/Acetaminophen [Percocet 5/325 mg Tab] 1 tab PO Q4H PRN #20 tab PRN Reason: Pain, Moderate (4-7) - Follow Up Plan Condition: GUARDED Disposition: HOME/ ROUTINE Instructions: Cholecystectomy (DC), Docusate, Oxycodone and Acetaminophen, Pneumococcal Polysaccharide Vaccine (23-Valent), Flu Vaccine, Cholecystitis (DC), Cholecystitis (GEN) Additional Instructions: OK to shower Follow up in MD office in 1 week No heavy lifting. Pt OK to return to work in 1 week, 06/04/18, or when pt feels comfortable enough to no longer take Rx medication for pain. Referrals: Foreign Cook MD [Staff Provider] -
[2018-05-27 07:57] VITALS: BP 112/62; PULSE 96; TEMP 98
--- NOTE | 2018-05-27 08:14 | OP ---
PROCEDURE DATE: 05/25/2018 PROCEDURE: Robotic cholecystectomy and laparoscopic exploration of the abdomen. INDICATION: Symptomatic cholelithiasis as well as intussusception found on CT scan. DESCRIPTION OF PROCEDURE: The patient was taken to the operating room and placed on the table in supine position. Timeouts were performed using both preinduction and preincision safety check list to verify correct patient and procedure site and then the additional critical information prior to the beginning of the procedure. General anesthesia was then initiated and the patient was intubated. All appropriate pressure points were padded in preparation for robotic surgery. The patient was then prepped and draped in a sterile fashion. After administration of local anesthesia periumbilical incision was made, the fascia was then dissected down using retractors and then elevated using Kochers and then incised followed by incision of the peritoneum, atraumatic entry into peritoneum was confirmed visually. At this point, the abdomen was then insufflated with carbon dioxide to a pressure of 12 to 50 mmHg. The patient tolerated the insufflation well. The laparoscope was then inserted and the abdomen was inspected to ensure no injuries occurred with the initial port placement. Additional ports were then placed as follows; one 12 mm left sided in line with the umbilicus, additional 12 mm right sided in line with the umbilicus, as well as two 5 mm ports, both in the left upper quadrant and right upper quadrant. Inspection of the abdomen then showed a distended but not significantly inflamed gallbladder. The small bowel appeared of normal caliber with no evidence of obstruction. At this point, attention was drawn to laparoscopically running the bowel due to the CT findings of intussusception. The omentum was lifted cephalad followed by the transverse colon. At this point using bowel graspers, we were able to identify the ligament of Treitz. Using bowel graspers, the small bowel was then traced from the ligament of Treitz down to the cecum. There is no evidence of any intussusception, any lead points, any strictures or adhesions that could be causing the CT findings. At this point it was determined that there were no abnormalities in the patient's small bowel, so the small bowel was placed back in the appropriate position. The omentum pulled back down over the small bowel. Attention was then drawn towards the gallbladder. A grasper was placed in the fundus of the gallbladder and this was retracted cephalad over the liver. There were no significant adhesions to the gallbladder and the omentum, duodenum and transverse colon were all well away from the area of surgery. The robot at this point was then docked and using the targeting aspect of the robot, the additional arms were then placed attached to the respective ports and then we were prepared to proceed forward with our robotic cholecystectomy. Prior to the operation, had been administered for using the firefly. We were able to identify the appropriate anatomy of the gallbladder including the cystic duct entering into the infundibulum as well as attached to the common bile duct. Dissection was then carried out using the infundibulum retracting inferolaterally to expose the Calot's triangle and then hook dissection was used to open up the peritoneum overlying the infundibulum both laterally and medially and this was incised and stripped inferiorly. The cystic duct was identified and artery was identified as well and both of these were dissected circumferentially until the critical view of safety was obtained. The cystic duct and artery were then doubly clipped and divided using robotic clippers and then divided using the robotic scissor. The gallbladder was then dissected off the liver using electrocautery. Hemostasis was achieved throughout this. The gallbladder was then placed in an endoscopic retrieval bag and removed through the periumbilical incision. Irrigation was performed and any spilled bile was suctioned. At this point, the robot was undocked. Additional laparoscopic inspection of the abdomen showed no additional bleeding or bile spillage. The gallbladder was removed through the umbilical port site. The ports were then removed under direct vision with no bleeding noted and the abdomen was deflated. The umbilical port was then closed with 4-0 Vicryl sutures. Then all incisions were then reapproximated with 3-0 Vicryl followed by subcuticular 4-0 Monocryl. Steri-Strips were applied and then a sterile dressing was applied. After that the debriefing checklist was completed and confirmed that the operative count was correct. The patient was then extubated in the OR and transferred to PACU in stable condition. Estimated blood loss 10 mL. Jimmy Martinez DO Foreign Cook MD [facility] # [id number]
--- NOTE | 2018-05-27 08:29 | CON ---
DATE: 05/26/2018 CHIEF COMPLAINT: Abdominal pain. HISTORY OF PRESENT ILLNESS: This is a 32-year-old Sami female with history of abdominal pain. She was in the emergency room on 05/19/2018. The patient came back to emergency room today, and she asked for surgery. According to the patient, she has not been taking any of the medications that was prescribed to her. She has history of early satiety, abdominal pain, to her back. She is having nausea after food, right upper quadrant pain, loose watery stool. She denies any chest pain, palpitation, weakness, dizziness. She denies any history of polyuria, polydipsia, or polyphagia. PAST MEDICAL HISTORY: Hypothyroidism, cholelithiasis. PAST SURGICAL HISTORY: Three C sections. CURRENT MEDICATIONS: Synthroid 200 mcg daily. ALLERGIES: NO KNOWN DRUG ALLERGIES. FAMILY HISTORY: Positive for breast and ovarian CA. SOCIAL HISTORY: Nonsmoker, non-EtOH user. She has nausea. No headache. No vomiting. She denies any epistaxis or dysphagia. PHYSICAL EXAMINATION: GENERAL: A young female, postop with some pain. VITAL SIGNS: Blood pressure 105/74, pulse 97, respiratory rate 20, and temperature 98. SKIN: Warm. Good turgor. No bruises. No purpura. No petechia. HEENT: Atraumatic, normocephalic. Negative pallor. Negative jaundice. Extraocular movements are intact. NECK: Supple. No JVD. No lymph node. No thyromegaly. No carotid bruits. CHEST: Chest wall with bilateral symmetrical expansion. LUNGS: Clear. No rales, no rhonchi. CARDIOVASCULAR SYSTEM: S1, S2 regular. No heave. No thrill. ABDOMEN: Soft and nontender. Postop bowel sounds are diminished but present. RECTAL AND PELVIC: Deferred. EXTREMITIES: No clubbing, cyanosis, or edema. CENTRAL NERVOUS SYSTEM: Awake, alert, and oriented x3. ASSESSMENT: 1. Abdominal pain. 2. Hypothyroidism. 3. Hypokalemia with borderline to low potassium. PLAN: Admit. K-Dur 20 mEq p.o. Monitor the patient. Elio Carbone MD
[2018-05-27] MEDS ORDERED: Pneumococcal 23-Valent Vaccine IM ONE (08:30)
[2018-05-27 08:46] LABS: BASO % 0.5 % (0.0-2.0); EOS # 0.1 K/uL (0.0-0.7); EOS % 1.8 % (0.0-4.0); HEMOGLOBIN 12.3 g/dL (11.0-16.0); LYMPH # 1.6 K/uL (1.0-4.3); LYMPH % 28.8 % (20.0-40.0); MEAN CELL VOLUME 81.6 fL (81.0-99.0); MEAN CORPUSCULAR HEMOGLOBIN 27.7 pg (27.0-31.0); MEAN CORPUSCULAR HGB CONC 33.9 g/dL (33.0-37.0); MEAN PLATELET VOLUME 9.7 fL (7.2-11.7); MONO # 0.5 K/uL (0.0-0.8); MONO % 8.6 % (0.0-10.0); NEUT # 3.4 K/uL (1.8-7.0); NEUT % 60.3 % (50.0-75.0); NRBC % 0.2 % (0.0-2.0); RBC 4.46 Mil/uL (3.80-5.20); RED CELL DISTRIBUTION WIDTH 13.4 % (11.5-14.5); WHITE BLOOD COUNT 5.6 K/uL (4.8-10.8)
[2018-05-27] MEDS ORDERED: Influenza Vaccine 60 MCG/0.5 ML SYR (3 yr & up) IM ONE (09:00)
[2018-05-27 09:05] LABS: ALB/GLOB RATIO 1.2 (1.0-2.1); ALBUMIN 3.9 g/dL (3.5-5.0); ALT/SGPT 48 U/L (9-52); AST/SGOT 36 U/L (14-36); BLOOD UREA NITROGEN 11 mg/dL (7-17); CALCIUM 9.3 mg/dl (8.6-10.4); GFR NON-AFRICAN AMERICAN > 60
[2018-05-27] MEDS ORDERED: Levothyroxine 88 MCG TAB PO SCH (10:00)
[2018-05-27] MEDS ORDERED: POLYETHYLENE GLYCOL 3350 17 GM/Dose PACKET PO SCH (10:00)
--- NOTE | 2018-05-27 22:20 | CP.PCM.PN ---
Subjective - Subjective Subjective: dictated Objective - Vital Signs/Intake and Output Vital Signs (last 24 hours): Temp Pulse Resp BP Pulse Ox 98.0 F 96 H 20 112/62 97 05/27/18 07:57 05/27/18 07:57 05/27/18 07:57 05/27/18 07:57 05/27/18 07:57 - Labs Labs: 05/27/18 08:36 05/27/18 08:36 PT 11.7 SECONDS (9.7-12.2) 05/25/18 10:03 INR 1.1 05/25/18 10:03 APTT 38 SECONDS (21-34) H 05/25/18 10:03
--- NOTE | 2018-05-28 02:54 | PN ---
DATE: 05/27/2018SUBJECTIVE: The patient is feeling better. She is afebrile. She has some postop abdominal pain. She had constipation, and she received lactulose. She is feeling much better, and she is being discharged by Surgery. PHYSICAL EXAMINATION: VITAL SIGNS: Blood pressure 112/62, pulse 96, respiratory rate 20, and temperature 98. LUNGS: Bilaterally clear. CVS: S1, S2 regular. ABDOMEN: Soft . ASSESSMENT: 1. Status post abdominal surgery. 2. Dehydration. 3. Hypokalemia. Elio Carbone MD
--- NOTE | 2018-05-28 17:22 | CARD ---
APPROVED REPORT Date of service: 05/25/2018 EKG Measurement Heart [id number] <Conclusion> Normal sinus rhythm Normal ECG
== END 2018-05-27 12:30 | disposition home or self-care (01) | DRG 493 ==
LOC: C.ER 07:42 → C.9E 09:37 → C.3T 10:09
PROVIDERS: ADMIT Surgery Surgical Critical Care; ATTEND Surgery Surgical Critical Care
PROC: 0WJJ4ZZ Inspection of Pelvic Cavity, Percutaneous Endoscopic Approach (ICD-10-PCS; 2018-05-25)
PROC: 8E0W4CZ Robotic Assisted Procedure of Trunk Region, Percutaneous Endoscopic Approach (ICD-10-PCS; 2018-05-25)
PROC: 0FT44ZZ Resection of Gallbladder, Percutaneous Endoscopic Approach (ICD-10-PCS; principal; 2018-05-25 12:00)
DX: K80.00 Calculus of gallbladder with acute cholecystitis without obstruction (principal); K56.1 Intussusception; E86.0 Dehydration; E87.6 Hypokalemia; E03.9 Hypothyroidism, unspecified